=== PATIENT | female | born 1970 | race Caucasian/White ===

== ENCOUNTER 2019-02-27 07:51 | Day surgery (SDC) | payer OTHER ==
[2019-02-22 16:27] VITALS: BMI 28.1
[2019-02-27] MEDS ORDERED: LIDOCAINE HCL/PF 2% SDV 5ML VIAL ONE (08:25)
[2019-02-27] MEDS ORDERED: PROPOFOL 20 ML ONE ×2 (08:25)
[2019-02-27 09:48] VITALS: TEMP 97.7
[2019-02-27 10:13] VITALS: BP 109/63; PULSE 60
== END 2019-02-27 10:05 | disposition home or self-care (01) ==
LOC: FASU-ENDO 07:51
PROVIDERS: ATTEND Internal Medicine Gastroenterology
PROC: 0DJD8ZZ Inspection of Lower Intestinal Tract, Via Natural or Artificial Opening Endoscopic (ICD-10-PCS; principal; 2019-02-27 09:11)
DX: Z12.11 Encounter for screening for malignant neoplasm of colon (principal); K64.8 Other hemorrhoids
CPT/HCPCS: 84703